=== PATIENT | male | born 1955 | race Caucasian/White ===

== ENCOUNTER → 2020-11-28 | Outpatient (CLI) | payer MEDICARE ==
[2020-11-28 11:10] LABS: Basophils # (A) 0.1 k/uL (0-0.2); Basophils % (A) 1 %; Eosinophils # (A) 0.1 k/uL (0-0.7); Eosinophils % (A) 1 %; HCT 42.7 % (39.0-53.0); HGB 14.5 gm/dL (13.0-17.5); Lymphocytes # (A) 0.7 k/uL (1.0-4.8); Lymphocytes % (A) 8 %; MCH 32.2 pg (25.0-35.0); MCHC 34.1 g/dL (31.0-37.0); MCV 94.6 fL (80.0-100.0); Mean Platelet Volume 7.5; Monocytes # (A) 0.7 k/uL (0-1.0); Monocytes % (A) 8 %; Neutrophils # (A) 7.2 k/uL (1.3-7.7); Neutrophils % (A) 81 %; Platelet Count 181 k/uL (150-450); RBC 4.51 m/uL (4.30-5.90); RDW 14.3 % (11.5-15.5)
[2020-11-28 11:24] LABS: Potassium 3.7 mmol/L (3.5-5.1)
[2020-11-28 12:00] LABS: INR 0.9 (<1.2); Partial Thromboplastin Time 23.9 sec (22.0-30.0); Prothrombin Time 9.7 sec (9.0-12.0)
== END | disposition home or self-care (01) ==
LOC: LABWHC1 09:28
PROVIDERS: ATTEND Thoracic Surgery (Cardiothoracic Vascular Surgery)
DX: Z01.812 Encounter for preprocedural laboratory examination (principal); R91.1 Solitary pulmonary nodule
CPT/HCPCS: 36415; 80051; 82565; 82947; 84520; 85025; 85610; 85730; 87086; 93005

== ENCOUNTER 2020-12-08 05:40 | Observation (INO) | payer MEDICARE ==
[2020-12-07 09:02] VITALS: BMI 36.2
[2020-12-08] MEDS ORDERED: ONDANSETRON 4 MG/2 ML VIAL IVP ONE (06:01)
[2020-12-08] MEDS ORDERED: LIDOCAINE 1% (10MG/ML) FOR IV START INTRADERMA PRN (06:01)
[2020-12-08] MEDS ORDERED: DEXAMETHASONE SOD PHOSPHATE 4 MG/ML 1 ML VIAL IV ONE (06:01)
[2020-12-08] MEDS ORDERED: MIDAZOLAM 2 MG/2 ML VIAL IV PRN (06:01)
[2020-12-08] MEDS ORDERED: LACTATED RINGERS 1,000 ML IV SCH (06:01)
[2020-12-08] MEDS ORDERED: MIDAZOLAM 2 MG/2 ML VIAL IVP ONE (07:08)
[2020-12-08] MEDS ORDERED: LIDOCAINE 1% INJ 10MG/ML (20 ML MDV) ONE (07:30)
[2020-12-08] MEDS ORDERED: MIDAZOLAM 2 MG/2 ML VIAL ONE (07:30)
[2020-12-08] MEDS ORDERED: PHENYLEPHRINE-0.9% NACL SYG 1,000 MCG/10 ML SYRINGE ONE (07:30)
[2020-12-08] MEDS ORDERED: fentaNYL (PF) 50 MCG/ML 2 ML AMP ONE (07:30)
[2020-12-08] MEDS ORDERED: ROCURONIUM 10 MG/ML (5 ML VIAL) IV ONE (07:30)
[2020-12-08] MEDS ORDERED: SUCCINYLCHOLINE CHLORIDE 100 MG/5 ML SYR IV ONE (07:30)
[2020-12-08] MEDS ORDERED: SUGAMMADEX SODIUM 500 MG/5 ML SDV IV ONE (07:30)
[2020-12-08] MEDS ORDERED: ePHEDrine SULFATE/0.9% NACL/PF 50 MG/5 ML SYRINGE IV ONE (07:30)
[2020-12-08] MEDS ORDERED: NEOSTIGMINE 1 MG/ML 10 ML VIAL ONE (07:30)
[2020-12-08] MEDS ORDERED: ALBUTEROL HFA INHALER INHALATION ONE (07:30)
[2020-12-08] MEDS ORDERED: GLYCOPYRROLATE 0.2 MG/ML 2 ML VIAL ONE (07:30)
[2020-12-08] MEDS ORDERED: PROPOFOL 10 MG/ML 20 ML VIAL IV ONE (07:30)
[2020-12-08] MEDS ORDERED: ROPIVACAINE 5 MG/ML 30 ML VIAL ONE (07:30)
[2020-12-08] MEDS ORDERED: LACTATED RINGERS 1,000 ML IV ONE ×2 (08:15→10:42)
[2020-12-08] MEDS ORDERED: BUPIVACAINE (PF) 0.25% 30 ML VIAL SQ ONE ×2 (08:29)
--- NOTE | 2020-12-08 09:27 | P.OP ---
Date of Procedure: 12/08/20 Preoperative Diagnosis: Bilateral interstitial lung disease Postoperative Diagnosis: Same Procedure(s) Performed: Left thoracoscopic lung biopsy Anesthesia: GETA Surgeon: Marshal Markham Estimated Blood Loss (ml): 25 IV fluids (ml): 1,000 Urine output (ml): 0 Pathology: other (Biopsies of base of left lower lobe, apical segment left lower lobe and lingula left upper lobe sent for pathology and cultures including aerobic anaerobic acid fast and fungus) Condition: stable Disposition: PACU Indications for Procedure: 65-year-old male with worsening dyspnea. CT demonstrated bilateral interstitial infiltrates worse on the left than the right. Diagnostic lung biopsy was requested by pulmonary medicine. Operative Findings: Lung compliance was somewhat diminished but otherwise the lung appeared relati vely normal. Description of Procedure: The patient was brought to the operating room placed supine on the operating table anesthetized and intubated with a double-lumen endotracheal tube. Tube was positioned with fiberoptic bronchoscopy and secured. Patient was turned in the right lateral decubitus position and the left chest sterilely prepped and draped. 3 one-inch incisions were made in the left chest and the video thoracoscope was introduced. Single lung ventilation had been initiated by anesthesia. Biopsies of the left lower lobe were obtained first. We started with the basilar biopsy. Multiple firings of Endo GABRIEL stapler were used to obtain the biopsies. The biopsies were brought out onto the field and stored on the back table. Following the basilar's biopsy a biopsy of the superior segment of the left lower lobe was performed. Finally a biopsy of the lingula was performed. Each specimen was divided on the back table and a small portion of each was sent for culture. The remainder was sent for permanent section. After assuring good staple lines a 28-Khmer chest tube was placed through separate stab incision and positioned posterior apically. It was secured with an 0 Ethibond suture. Was connected to a Pleur-evac. The lung was inflated. Rib blocks were performed at the level of the incisions with half percent Marcaine. The incisions were closed with layers of Vicryl suture. Skin glue and Band-Aid dressings were applied. Chest tube dressing was applied around the chest tube. Patient was turned supine and extubated and transferred to recovery in stable condition.
[2020-12-08] MEDS: HYDROmorphone 0.5 MG/0.5 ML SYRINGE IVP PRN ×2 (09:30→09:53)
--- NOTE | 2020-12-08 10:21 | XR ---
EXAMINATION TYPE: XR chest 1V portable DATE OF EXAM: 12/08/2020 HISTORY: Status post lung biopsy COMPARISON: None. TECHNIQUE: Single view of the chest is submitted. FINDINGS: Demonstrated are scattered senescent parenchymal change. Left-sided chest tube is in place without evidence for sizable pneumothorax at this time. Strandy and patchy basilar densities noted. The heart is stable. Hilar and mediastinal structures are within normal limits. Degenerative changes are seen of the dorsal spine. IMPRESSION: 1. Left-sided chest tube is in place without evidence for sizable pneumothorax at this time. Strandy and patchy basilar densities noted.
[2020-12-08] MEDS ORDERED: ONDANSETRON 4 MG/2 ML VIAL IVP PRN (11:00)
[2020-12-08] MEDS ORDERED: ACETAMINOPHEN TAB 325 MG TAB PO PRN (11:00)
[2020-12-08] MEDS ORDERED: DEXTROSE 5%-0.45% NACL 1,000 ML IV SCH (11:00)
[2020-12-08] MEDS ORDERED: IPRATROPIUM-ALBUTEROL 3 ML NEB IH PRN (11:00)
[2020-12-08] MEDS: KETOROLAC 15 MG/ML 1 ML VIAL IVP SCH ×3 (11:02→23:32)
--- NOTE | 2020-12-08 13:14 | P.ANPRN ---
Procedure Note - Anesthesia - Nerve Block Performed Left Erector Spinae Time Out Performed: Yes (07:08) Date of Procedure: 12/08/20 Procedure Start Time: Procedure Stop Time: Location of Patient: PreOp Indication: Acute Post-Operative Pain, Requested by Surgeon (Dr Markham) Sedation Type: Sedate with meaningful contact maintained Preparation: Sterile Prep Position: Sitting Catheter: None Needle Types: Pajunk Needle Gauge: 21 Ultrasound used to visualize needle placement: Yes Ultrasound used to observe medication spread: Yes Injectate: 0.5% Ropivacaine (see comment for volume) (17cc) Blood Aspirated: No Pain Paresthesia on Injection Noted: No Resistance on Injection: Normal Image Stored and Saved: Yes Events: Uneventful and Well Tolerated
[2020-12-08] MEDS: IPRATROPIUM-ALBUTEROL 3 ML NEB IH SCH ×3 (15:25→19:30)
[2020-12-08] MEDS: traMADol 50 MG TAB PO SCH ×4 (15:34→23:40)
[2020-12-08] MEDS: HEPARIN SODIUM,PORCINE/PF 5,000 UNIT/0.5 ML SYRINGE SQ SCH ×2 (16:45→23:32)
--- NOTE | 2020-12-08 17:16 | P.CNPUL ---
History of Present Illness Consult date: 12/08/20 Reason for consult: pulmonary fibrosis History of present illness: 65-year-old male patient, with known history of interstitial lung disease/pulmonary fibrosis and the patient underwent a thoracoscopic wedge lung biopsy. The patient is known to have also coronary artery disease. His previous cardiac catheterization showed nonocclusive disease. The patient also has history of hypertension, chronic stage II kidney disease and he has a prese rved left a ejection fraction of around 70%. The patient was experiencing dry and nonproductive cough and he was referred to pulmonology where the patient underwent a PFT and the patient was found to have restrictive lung disease and a CT of the chest showed lower lobe pulmonary fibrosis with groundglass changes being absent and essentially it was consistent with honeycombing in the lower lobes with subpleural distribution, highly suspicious for over a fibrosis. For now, the patient is doing well. His pain is under adequate control. Postop chest x-ray shows no evidence of any pneumothorax and the patient has a left- sided chest tube in place. No this of any air leak. Review of Systems Constitutional: Denies chills, Denies fever Eyes: denies as per HPI, denies blurred vision, denies bulging eye, denies decreased vision, denies diplopia, denies discharge, denies dry eye, denies irritation, denies itching, denies pain, denies photophobia, denies loss of peripheral vision, denies loss of vision, denies tunnel vision/blind spots Ears, nose, mouth and throat: Reports as per HPI Cardiovascular: Reports dyspnea on exertion Respiratory: Reports cough Gastrointestinal: Reports as per HPI Genitourinary: Reports as per HPI Musculoskeletal: Reports as per HPI Musculoskeletal: absent: ankle pain, ankle stiffness, ankle swelling, as per HPI, elbow pain, elbow stiffness, elbow swelling, foot pain, foot stiffness, foot swelling, hand pain, hand stiffness, hand swelling, hip pain, hip stiffness, hip swelling, knee pain, knee stiffness, knee swelling, shoulder pain, shoulder stiffness, shoulder swelling, wrist pain, wrist stiffness, wrist swelling Integumentary: Reports as per HPI Neurological: Reports as per HPI Psychiatric: Reports as per HPI Endocrine: Reports as per HPI Hematologic/Lymphatic: Reports as per HPI Allergic/Immunologic: Reports as per HPI Past Medical History Past Medical History: Coronary Artery Disease (CAD), Hyperlipidemia, Hyperte nsion, Prostate Disorder, Renal Disease Additional Past Medical History / Comment(s): pulmonary fibrosis, interstitial lung disease, SOB w/exertion, elevated PSA recently, 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 History of Any Multi-Drug Resistant Organisms: None Reported Past Surgical History: Orthopedic Surgery Additional Past Surgical History / Comment(s): right shoulder rotator cuff repair, right knee arthroscopy, right achilles tendon repair Past Anesthesia/Blood Transfusion Reactions: No Reported Reaction Smoking Status: Never smoker - Past Family History Father Family Medical History: Cancer Medications and Allergies Home Medications Medication Instructions Recorded Confirmed Type Aspirin 81 mg PO DAILY 12/07/20 12/08/20 History Atenolol [Tenormin] 100 mg PO DAILY 12/07/20 12/08/20 History Rosuvastatin Calcium [Crestor] 20 mg PO DAILY 12/07/20 12/08/20 History Allergies Allergy/AdvReac Type Severity Reaction Status Date / Time atorvastatin [From Lipitor] Allergy Rash/Hives Verified 12/08/20 14:23 Physical Exam Vitals: Vital Signs Temp Pulse Pulse Pulse Resp BP BP 12/08/20 16:47 18 12/08/20 15:39 72 12/08/20 15:26 72 12/08/20 14:59 64 16 128/72 12/08/20 14:07 62 16 129/71 12/08/20 13:07 71 16 122/76 12/08/20 12:07 69 16 120/70 12/08/20 11:37 64 16 116/67 12/08/20 11:07 67 16 113/68 12/08/20 10:37 61 18 112/64 12/08/20 10:07 63 20 106/61 12/08/20 09:52 62 16 99/58 12/08/20 09:50 16 12/08/20 09:42 66 16 93/56 12/08/20 09:32 65 16 91/52 12/08/20 09:22 96.9 F L 65 16 101/55 12/08/20 06:26 96.7 F L 76 16 162/77 Pulse Ox 12/08/20 16:47 93 L 12/08/20 15:39 12/08/20 15:26 12/08/20 14:59 97 12/08/20 14:07 96 12/08/20 13:07 97 12/08/20 12:07 97 12/08/20 11:37 97 12/08/20 11:07 93 L 12/08/20 10:37 93 L 12/08/20 10:07 96 12/08/20 09:52 92 L 12/08/20 09:50 93 L 12/08/20 09:42 92 L 12/08/20 09:32 92 L 12/08/20 09:22 92 L 12/08/20 06:26 92 L Intake and Output 12/08/20 12/08/20 12/08/20 06:59 14:59 22:59 Intake Total 400 2250 Output Total 10 Balance 400 2240 Intake: IV 400 2250 Output: Estimated Blood Loss 10 Other: Weight 123 kg Results - Diagnostic Findings Chest x-ray: image reviewed Assessment and Plan Plan: 1 Chronic interstitial lung disease/highly suspicious for idiopathic pulmonary fibrosis. The patient is postop thoracoscopic wedge biopsy of the lung. The patient is postop day #0. The patient is doing well hemodynamically stable and the patient is single left-sided chest tube in place without evidence of any air leak. Chest x-ray shows no evidence of any pneumothorax and there are some chronic interstitial changes in lung bases bilaterally along with some atelectatic changes in lung bases. The chest tube to waterseal. The patient is currently on 2 L of oxygen by nasal cannula. 2 chronic cough and dyspnea secondary to above 3 coronary artery disease, nonocclusive, preserved LV function 4 hyperlipidemia 5 JEANIE Plan Repeat chest x-ray in the morning Pain control Incentive spirometer Monitor the air leak or any output from the chest. The chest tube is currently connected to waterseal Compression devices to lower extremities regarding activity prophylaxis Possible home within the next 24-48 hours based on his progression. No major output from the chest tube at this point in time.
[2020-12-09] MEDS: traMADol 50 MG TAB PO SCH ×2 (06:21→11:19)
[2020-12-09] MEDS: KETOROLAC 15 MG/ML 1 ML VIAL IVP SCH (06:23)
[2020-12-09] MEDS ORDERED: PANTOPRAZOLE 40 MG TABLET PO SCH (07:30)
[2020-12-09 07:41] LABS: Basophils % (A) 0 %; Eosinophils % (A) 0 %; HCT 36.8 % (39.0-53.0); HGB 12.2 gm/dL (13.0-17.5); Lymphocytes # (A) 0.5 k/uL (1.0-4.8); Lymphocytes % (A) 5 %; MCH 32.5 pg (25.0-35.0); MCHC 33.2 g/dL (31.0-37.0); Monocytes # (A) 0.4 k/uL (0-1.0); Monocytes % (A) 4 %; Neutrophils # (A) 8.2 k/uL (1.3-7.7); Neutrophils % (A) 88 %; Platelet Count 183 k/uL (150-450); RBC 3.75 m/uL (4.30-5.90); RDW 14.4 % (11.5-15.5); WBC 9.3 k/uL (3.8-10.6)
[2020-12-09 07:45] VITALS: RESP 18
[2020-12-09] MEDS: IPRATROPIUM-ALBUTEROL 3 ML NEB IH SCH ×3 (08:08→15:29)
--- NOTE | 2020-12-09 08:11 | XR ---
EXAMINATION TYPE: XR chest 2V DATE OF EXAM: 12/09/2020 COMPARISON: 09/07/2020 HISTORY: 65 year-old male post biopsy TECHNIQUE: AP and lateral views FINDINGS: Heart is mildly enlarged. Left sided chest tube is present. No appreciable pneumothorax. Some patchy lower lung opacities remain but show slight improvement. Some strandy left mid lung atelectasis noted . No sizable pleural effusion. IMPRESSION: 1. Mild cardiomegaly remains. 2. Left-sided chest tube. No appreciable pneumothorax. 3. Some patchy bibasilar atelectasis versus infiltrates remain but show slight improvement.
[2020-12-09 08:14] LABS: Calcium 8.6 mg/dL (8.4-10.2); Potassium 3.8 mmol/L (3.5-5.1)
[2020-12-09] MEDS: HEPARIN SODIUM,PORCINE/PF 5,000 UNIT/0.5 ML SYRINGE SQ SCH (08:51)
[2020-12-09] MEDS ORDERED: atenoloL 50 MG TAB PO SCH (09:00)
[2020-12-09] MEDS ORDERED: ATORVASTATIN 40 MG TAB PO SCH (09:00)
[2020-12-09] MEDS ORDERED: KETOROLAC 15 MG/ML 1 ML VIAL IVP SCH (09:00)
[2020-12-09] MEDS ORDERED: ASPIRIN 81 MG PO SCH (09:00)
--- NOTE | 2020-12-09 11:39 | P.PN ---
Subjective Progress Note Date: 12/09/20 65-year-old male patient, with known history of interstitial lung disease/pulmonary fibrosis and the patient underwent a thoracoscopic wedge lung biopsy. The patient is known to have also coronary artery disease. His previous cardiac catheterization showed nonocclusive disease. The patient also has history of hypertension, chronic stage II kidney disease and he has a preserved left a ejection fraction of around 70%. The patient was experiencing dry and nonproductive cough and he was referred to pulmonology where the patient underwent a PFT and the patient was found to have restrictive lung disease and a CT of the chest showed lower lobe pulmonary fibrosis with groundglass changes being absent and essentially it was consistent with honeycombing in the lower lobes with subpleural distribution, highly suspicious for over a fibrosis. For now, the patient is doing well. His pain is under adequate control. Postop chest x-ray shows no evidence of any pneumothorax and the patient has a left-s ided chest tube in place. No this of any air leak. On today's evaluation on 12/09/2020 patient is seen in follow-up on selective care unit, today is postoperative day #1, status post thoracoscopic lung wedge biopsy for a diagnosis of interstitial lung disease, highly suspicious for idiopathic pulmonary fibrosis, he is awake and alert, oriented 3. Breathing comfortably, he is pulling [id number] on his incentive spirometer, lung sounds are positive for coarse crackles in bilateral bases, more so on the left base. Occasional cough, no phlegm production, his left-sided chest tube has been di scontinued. This morning's chest x-ray has been reviewed, and left sided chest tube was still present at that time, there was no appreciable pneumothorax, there was some patchy lower opacities with slight improvement. There was some strandy left mid lung atelectasis. Vital signs haven't stable, no acute events overnight, patient is already fully dressed, he is getting ready for discharge home. His lung wedge biopsy results pending, likely will not be available for the next several days. His labs have been reviewed, white blood cell count is 9.3, hemoglobin 12.2 sodium is 134, the rest of electrolytes are unremarkable, BUN is 23, creatinine is 1.63 Objective - Vital Signs Vital signs: Vital Signs Temp 98.4 F 12/09/20 07:44 Pulse 80 12/09/20 11:18 Resp 18 12/09/20 07:44 BP 114/63 12/09/20 07:44 Pulse Ox 95 12/09/20 07:44 Intake & Output 12/08/20 12/09/20 12/09/20 18:59 06:59 18:59 Intake Total 2250 1160 0 Output Total 10 790 Balance 2240 370 0 Weight 123 kg 126.7 kg Intake: IV 2250 200 Lactated Ringers 1,000 ml 200 @ 20 mls/hr IV .Q24H JAYLA Rx#:[id number] Oral 960 0 Output: Chest Tube Drainage 240 Chest Tube Left Lateral 240 Chest Urine 550 Estimated Blood Loss 10 Other: Voiding Method Urinal Urinal Urinal # Voids 1 - Exam GENERAL EXAM: Alert, very pleasant, 65-year-old white male, on room air, comfortable in no apparent distress. HEAD: Normocephalic/atraumatic. EYES: Normal reaction of pupils, equal size. Conjunctiva pink, sclera white. NOSE: Clear with pink turbinates. THROAT: No erythema or exudates. NECK: No masses, no JVD, no thyroid enlargement, no adenopathy. CHEST: No chest wall deformity. Symmetrical expansion. Left lateral thoracoscopic lung wedge biopsy site is clean dry and intact, covered with a large Band-Aid, left chest tube insertion site is clean dry and intact LUNGS: Equal air entry with coarse bilateral lower base crackles, more so at the left base CVS: Regular rate and rhythm, normal S1 and S2, no gallops, no murmurs, no rubs ABDOMEN: Soft, nontender. No hepatosplenomegaly, normal bowel sounds, no guardi ng or rigidity. EXTREMITIES: No clubbing, no edema, no cyanosis, 2+ pulses and upper and lower extremities. MUSCULOSKELETAL: Muscle strength and tone normal. SPINE: No scoliosis or deformity SKIN: No rashes CENTRAL NERVOUS SYSTEM: Alert and oriented -3. No focal deficits, tone is normal in all 4 extremities. PSYCHIATRIC: Alert and oriented -3. Appropriate affect. Intact judgment and insight. - Labs CBC & Chem 7: 12/09/20 07:20 12/09/20 07:20 Labs: Abnormal Lab Results - Last 24 Hours (Table) 12/09/20 12/09/20 Range/Units 07:20 07:20 RBC 3.75 L (4.30-5.90) m/uL Hgb 12.2 L (13.0-17.5) gm/dL Hct 36.8 L (39.0-53.0) % Neutrophils # 8.2 H (1.3-7.7) k/uL Lymphocytes # 0.5 L (1.0-4.8) k/uL Sodium 134 L (137-145) mmol/L BUN 23 H (9-20) mg/dL Creatinine 1.63 H (0.66-1.25) mg/dL Glucose 121 H (74-99) mg/dL Microbiology - Last 24 Hours (Table) 12/08/20 08:37 Gram Stain - Preliminary Lung - Left Upper Lobe Tissue Culture - Preliminary 12/08/20 08:37 Gram Stain - Preliminary Lung - Left Lower Lobe Tissue Culture - Preliminary 12/08/20 08:37 Gram Stain - Preliminary Lung - Left Lower Lobe Tissue Culture - Preliminary 12/08/20 08:37 Acid Fast Bacilli Culture - Preliminary Lung - Left Lower Lobe 12/08/20 08:37 Anaerobic Culture - Preliminary Lung - Left Lower Lobe 12/08/20 08:37 Fungal Culture - Preliminary Lung - Left Upper Lobe 12/08/20 08:37 Anaerobic Culture - Preliminary Lung - Left Upper Lobe 12/08/20 08:37 Anaerobic Culture - Preliminary Lung - Left Lower Lobe 12/08/20 08:37 Fungal Culture - Preliminary Lung - Left Lower Lobe 12/08/20 08:37 Acid Fast Bacilli Culture - Preliminary Lung - Left Upper Lobe 12/08/20 08:37 Fungal Culture - Preliminary Lung - Left Lower Lobe 12/08/20 08:37 Acid Fast Bacilli Culture - Preliminary Lung - Left Lower Lobe Assessment and Plan Plan: Assessment: #1. Chronic interstitial lung disease/highly suspicious for idiopathic pulmonary fibrosis. The patient is postop thoracoscopic wedge biopsy of the lung. The patient is postop day #0. The patient is doing well hemodynamically stable and the patient is single left-sided chest tube in place without evidence of any air leak. Chest x-ray shows no evidence of any pneumothorax and there are some chronic interstitial changes in lung bases bilaterally along with some atelectatic changes in lung bases. The chest tube to waterseal. The patient is currently on 2 L of oxygen by nasal cannula. #2. Chronic cough and dyspnea secondary to above #3. Coronary artery disease, nonocclusive, preserved LV function #4. Hyperlipidemia #5. JEANIE Plan Chest x-ray this morning has been reviewed, chest tube is in adequate position, no pneumothorax, Vital signs have been stable, chest tube has been discontinued, Lung wedge pathology report is pending, likely will not be available for next several days Follow up chest x-ray is pending Continue encouraging deep breathing and coughing and incentive spirometry She is tolerating ambulation, vital signs have been stable, no acute events overnight Discharge home is pending today, Outpatient follow-up with Dr. Dr. Blank in the office in one week I performed a history & physical examination of the patient and discussed their management with my nurse practitioner, April Garcia. I reviewed the nurse practitioner's note and agree with the documented findings and plan of care. Lung sounds are positive for diffuse coarse crackles throughout the lung gutierrez. The findings and the impression was discussed with the patient. I attest to the documentation by the nurse practitioner. Time with Patient: Less than 30
[2020-12-09 11:47] VITALS: BP 116/72; PULSE 82; TEMP 98
--- NOTE | 2020-12-09 14:31 | XR ---
EXAMINATION TYPE: XR chest 1V portable DATE OF EXAM: 12/09/2020 COMPARISON: 12/09/2020 HISTORY: Post chest tube removal TECHNIQUE: Single frontal view of the chest is obtained. FINDINGS: Left-sided chest tube removal. No sizable pneumothorax. Subsegmental changes both lung bas es. Heart size normal. Hypertrophic and degenerative change of the spine. Arthropathy of the shoulder s. IMPRESSION: No sizable pneumothorax. Basilar atelectasis or infiltrate correlate clinically.
--- NOTE | 2020-12-09 15:11 | P.DS ---
Providers Date of admission: 12/09/20 12:04 Expected date of discharge: 12/09/20 Attending physician: Marshal Markham Consults: 12/08/20 11:00 Consult Physician Routine Consulting Provider: Ning Barkley Consult Reason/Comments: post lung biopsy; cody patient Do you want consulting provider notified?: Yes Primary care physician: Jose Manuel Valencia MD Hospital Course: FINAL DIAGNOSIS: 1. Bilateral interstitial lung disease, status post left thoracoscopic lung biopsy 2. History of hypertension 3. History of hyperlipidemia 4. Prostate disorder 5. Chronic stage II kidney disease 6. Coronary artery disease with preserved left ventricular systolic function with ejection fraction of 70% 7. Lifetime nonsmoker PRINCIPAL PROCEDURE: 1. Left thoracoscopic lung biopsy. HISTORY OF PRESENT ILLNESS: This is a 65-year-old gentleman who follows with Dr. Jose Manuel Valencia for his primary care service and also with Dr. Don Blank for his pulmonary care. The patient has had complaints of progressive shortness of breath with exertion and cough. Patient reports that his cough is prominently at night and is dry and nonproductive. Patient recently underwent some cardiac workup which proved to be negative. Subsequently he was seen by Dr. Don Blank from pulmonary medicine and the patient underwent a pulmonary function test which revealed a restrictive component of lung disease. He also underwent a computed tomography scan of his chest which demonstrated interstitial disease bilaterally, most prominent to his bilateral lower lobes and more prominent on the left than on the right. Due to the patient's above-mentioned symptoms, findings on his computed tomography scan of his chest and his pulmonary function test results, he was referred to Dr. Marshal Markham from cardiothoracic surgery for further evaluation and diagnostic lung biopsy. Risks and benefits of the diagnostic lung biopsy were reviewed with the patient by Dr. Markham and knowing and understanding the risks the patient wished to proceed with the lung biopsy. HOSPITAL COURSE: The patient was brought to the hospital on 12/08/2020, taken to the preoperative area, prepared in the usual fashion and subsequently taken to the operating room where Dr. Marshal Markham performed a left thoracoscopic lung biopsy. Upon completion of the surgery the patient was extubated and taken to the recovery room for further monitoring. He was eventually admitted to the cardiac stepdown unit for further monitoring. His oxygen was titrated down, he was tolerating an oral diet, his pain was well-controlled, and his chest tube was removed on postoperative day #1. Repeat chest x-ray was stable and he was ready to be discharged home on postoperative day #1. He has received written and verbal instructions regarding his medications, activity restrictions, signs and symptoms requiring physician notification and his follow-up appointments. The patient's pathology results remain pending and will be discussed with the patient on his follow-up appointments. Plan - Discharge Summary Discharge Rx Participant: No New Discharge Prescriptions: New Acetaminophen Tab [Tylenol] 650 mg PO Q4HR PRN tab PRN Reason: Fever and/ or Mild Pain Continue Aspirin 81 mg PO DAILY Atenolol [Tenormin] 100 mg PO DAILY Rosuvastatin Calcium [Crestor] 20 mg PO DAILY Discharge Medication List Aspirin 81 mg PO DAILY 12/07/20 [History] Atenolol [Tenormin] 100 mg PO DAILY 12/07/20 [History] Rosuvastatin Calcium [Crestor] 20 mg PO DAILY 12/07/20 [History] Acetaminophen Tab [Tylenol] 650 mg PO Q4HR PRN tab 12/09/20 [Rx] Follow up Appointment(s)/Referral(s): Marshal Markham MD [STAFF PHYSICIAN] - 12/15/20 9:00 am Don Blank DO [Doctor of Osteopathic Medicine] - 12/28/20 8:30 am Ambulatory/Diagnostic Orders: XR chest 2V [RAD.AMB] Time Frame: 12/15/20, Facility: [facility], Location: [facility] Activity/Diet/Wound Care/Special Instructions: DISCHARGE INSTRUCTIONS: 1. No driving for 2 weeks, or until physician gives their ok. 2. No lifting, pushing, or pulling more than 10 pounds for 2 weeks. The physician will advise of any restriction changes. 3. Continue pain control per as needed orders. Alternate acetaminophen (Tylenol) and ibuprofen (Motrin/Advil) for pain. 4. Continue with incentive spirometry and splinting until otherwise directed by the physician. 5. Leave chest tube dressing for 48 hours. After that, remove all dressings and shower daily. 6. Routine incision care. No powders, lotions, ointments on incisions. 7. Please call surgeon/EXTRUDER OPERATOR HORIZONTAL for temp greater than 101 F or purulent drainage from incisions. For any questions or concerns please call : Gerri or Alfie @ at nurse practitioners at Dr. Markham's office.
== END 2020-12-09 15:42 | disposition home or self-care (01) ==
LOC: OR 05:40 → EDSTATUS 07:30 → 3SCARD 08:55 → OR 12-09 12:04
PROVIDERS: ADMIT Thoracic Surgery (Cardiothoracic Vascular Surgery); ATTEND Thoracic Surgery (Cardiothoracic Vascular Surgery)
DX: J84.10 Pulmonary fibrosis, unspecified (principal); J84.111 Idiopathic interstitial pneumonia, not otherwise specified; J94.8 Other specified pleural conditions; J98.4 Other disorders of lung; I12.9 Hypertensive chronic kidney disease with stage 1 through stage 4 chronic kidney disease, or unspecified chronic kidney disease; N18.2 Chronic kidney disease, stage 2 (mild); E78.5 Hyperlipidemia, unspecified; N42.9 Disorder of prostate, unspecified; I25.10 Atherosclerotic heart disease of native coronary artery without angina pectoris; J98.11 Atelectasis; E78.00 Pure hypercholesterolemia, unspecified; G47.33 Obstructive sleep apnea (adult) (pediatric); R97.20 Elevated prostate specific antigen [PSA]; E66.9 Obesity, unspecified; Z68.39 Body mass index [BMI] 39.0-39.9, adult; Z79.82 Long term (current) use of aspirin; Z79.899 Other long term (current) drug therapy; Z88.8 Allergy status to other drugs, medicaments and biological substances
CPT/HCPCS: 94640 ×3; 64999; 80048; 85025; 88307; 87070; 87205; 87075; 87116; 87102; 87206; 71045 ×2; 71046; 32607; G0378; C1729; J2250; J2710; J0690; J2405; J2001; J3010; J2795; J1885 ×2; J2370; J0330; J2704; J1170; J1644 ×2

== ENCOUNTER → 2020-12-13 | Outpatient (CLI) | payer MEDICARE ==
--- NOTE | 2020-12-13 11:09 | XR ---
EXAMINATION TYPE: XR chest 2V DATE OF EXAM: 12/13/2020 COMPARISON: 12/09/2020 HISTORY: 65-year-old male postop left-sided lung biopsy one week ago TECHNIQUE: Frontal and lateral views FINDINGS: Heart normal size. Mild elongation/ectasia of the thoracic aorta. Mild interstitial prominence as a c hronic appearance. There is blunted left costophrenic angle. Mild hyperinflation. IMPRESSION: Blunted left costophrenic angle with small amount of focal left basilar opacity. Correlate for a trac e left pleural effusion with adjacent atelectasis and/or consolidation. Relatively similar to prior e xam.
== END | disposition home or self-care (01) ==
LOC: RADXRMAIN 10:34
PROVIDERS: ATTEND Nurse Practitioner Family
DX: J90 Pleural effusion, not elsewhere classified (principal); J98.11 Atelectasis
CPT/HCPCS: 71046

== ENCOUNTER → 2021-01-07 | Outpatient (CLI) | payer MEDICARE | END | disposition home or self-care (01) | LOC: LABWHC1 08:29 | PROVIDERS: ATTEND Internal Medicine Critical Care Medicine | DX: J84.9 Interstitial pulmonary disease, unspecified (principal) | CPT/HCPCS: 36415; 86001; 86606; 86609 ==

== ENCOUNTER → 2021-08-07 | Outpatient (CLI) | payer MEDICARE | END | disposition home or self-care (01) | LOC: LABWHC1 07:44 | PROVIDERS: ATTEND Internal Medicine Nephrology | DX: Z53.9 Procedure and treatment not carried out, unspecified reason (principal) ==

== ENCOUNTER 2021-08-09 07:23 | Day surgery (SDC) | payer MEDICARE ==
[2021-08-07 08:19] LABS: Basophils # (A) 0.1 k/uL (0-0.2); Basophils % (A) 1 %; Eosinophils # (A) 0.1 k/uL (0-0.7); Eosinophils % (A) 1 %; HCT 38.6 % (39.0-53.0); HGB 12.1 gm/dL (13.0-17.5); Hypochromasia Moderate; Lymphocytes # (A) 0.7 k/uL (1.0-4.8); Lymphocytes % (A) 9 %; MCH 31.4 pg (25.0-35.0); MCHC 31.2 g/dL (31.0-37.0); MCV 100.7 fL (80.0-100.0); Macrocytosis Slight; Monocytes # (A) 0.4 k/uL (0-1.0); Monocytes % (A) 5 %; Neutrophils # (A) 6.4 k/uL (1.3-7.7); Neutrophils % (A) 83 %; Platelet Count 204 k/uL (150-450); RBC 3.84 m/uL (4.30-5.90); RDW 14.5 % (11.5-15.5); WBC 7.8 k/uL (3.8-10.6)
[2021-08-07 08:33] LABS: INR 0.9 (<1.2); Partial Thromboplastin Time 26.1 sec (22.0-30.0); Prothrombin Time 9.8 sec (9.0-12.0)
[2021-08-07 08:45] LABS: Potassium 4.1 mmol/L (3.5-5.1)
[2021-08-09] MEDS ORDERED: DESMOPRESSIN ACETATE 34 MCG in SODIUM CHLORIDE 0.9% 50 ML IV STA (08:12)
[2021-08-09] MEDS ORDERED: ALPRAZolam 0.25 MG TAB PO PRN (08:28)
[2021-08-09] MEDS ORDERED: HYDROmorphone 0.5 MG/0.5 ML SYRINGE IVP PRN (08:28)
[2021-08-09 08:53] VITALS: RESP 20; TEMP 98.6
[2021-08-09 10:43] VITALS: BP 125/83; PULSE 108
--- NOTE | 2021-08-09 11:42 | CT ---
EXAMINATION TYPE: CT discontinued procedure DATE OF EXAM: 08/09/2021 COMPARISON: None HISTORY: Chronic kidney disease CT DLP: 699 mGycm Automated exposure control for dose reduction was used. FINDINGS: The patient had difficulty positioning for the procedure and asked to discontinue the procedure. Pat ent's blood pressure and heart rate were elevated as well. IMPRESSION: DISCONTINUED PROCEDURE.
== END 2021-08-09 10:30 | disposition home or self-care (01) ==
LOC: RADPROMAIN 07:23
PROVIDERS: ATTEND Internal Medicine Nephrology
DX: N18.4 Chronic kidney disease, stage 4 (severe) (principal)
CPT/HCPCS: 86900; 86901; 80051; 82565; 84520; 85025; 85610; 85730; 86850; 36415 ×2; J2597; J1170; 76380

== ENCOUNTER → 2021-11-08 | Outpatient (CLI) | payer MEDICARE ==
--- NOTE | 2021-11-08 17:41 | CT ---
EXAMINATION TYPE: CT chest wo con CT DLP: 1210.30 mGycm, Automated exposure control for dose reduction was used. DATE OF EXAM: 11/08/2021 4:33 PM COMPARISON: Chest radiograph from same day. Multiple CTs of the chest with most recent on . CLINICAL INDICATION:Male, 66 years old with history of J84.9 interstitial lung disease,J84.10 pulmona ry f; Interstitial lung disease, pulmonary fibrosis. High Res TECHNIQUE: Multiple axial images were obtained through the chest. Sagittal and coronal reformats were created for review. Prone and sagittal imaging were performed. Contrast used: none. Oral contrast used: none. FINDINGS: LUNGS: There is no evidence of interstitial thickening, significant groundglass opacity, honeycombing or architectural distortion in the lungs. No bronchiectasis. No acute area of infiltrative or consol idative change. Scattered reticular opacities which are most pronounced in the lung bases. LARGE AIRWAYS: Central airways are patent. HEART: Heart is mildly enlarged for size. There is atherosclerosis of the coronary arteries. MEDIASTINUM: No gross evidence of adenopathy. VASCULATURE: No aortic aneurysm. MUSCULOSKELETAL: No acute osseous abnormalities, atrophy of the paraspinal musculature. SOFT TISSUES/LYMPH NODES: Unremarkable. LOWER NECK: No significant findings. UPPER ABDOMEN: Diffuse low-attenuation to the liver parenchyma. IMPRESSION: 1. Peripheral reticular opacities most pronounced in the lung bases suggestive which could represent early UIP (probable UIP pattern). No honeycombing definitively visualized at this time. Attention on follow-up imaging in one year. 2. Hepatic steatosis.
== END | disposition home or self-care (01) ==
LOC: RADCTMAIN 15:26
PROVIDERS: ATTEND Internal Medicine
DX: J84.10 Pulmonary fibrosis, unspecified (principal); J84.9 Interstitial pulmonary disease, unspecified
CPT/HCPCS: 71250